=== PATIENT | female | born 1970 | race Caucasian/White ===

== ENCOUNTER → 2023-03-06 | Outpatient (REF) | payer BC ==
[~2023-03-06] MED LIST: ALDACTONE25 MG PO; ATARAX 25MG25 MG; ATORVASTATIN CA20 MG PO; B COMPLEX1 EACH PO; BENADRYL PO; BENADRYL25 M1 PO; BUSPIRONE HCL5 MG PO; CLARITIN PO; CYCLOBENZAPRINE5 MG PO; EMBRIL SQ; FOLIC ACID1 MG PO; LASIX40 MG PO; LORATADINE10 MG PO; LYRICA 75MG75 MG; LYRICA100 MG PO; METHOTREXATE PO; METOPROLOL SUCC25 MG PO; MONTELUKAST SOD10 MG PO; MOTRIN200 MG PO; MOTRIN800 MG PO; NORCO 10-325 T1 EACH PO; OYSTER SHELL C1 EACH PO; PLAVIX75 MG PO; PREDNISONE10 MG PO; PROBIOTIC & AC1 EACH PO; QNASL8.7 GM INH; TOPIRAMATE100 MG PO; VALIUM10 MG PO; VITAMIN C500 MG PO; VITAMIN D1000 UNI1 PO; Z SULFASALAZINE PO; Z.0.DOXEPIN HCL25 MG PO; Z.0.NORCO 10-325 T1 PO; Z.0.OSCAL D500 MG; ZEGERID 40 MG1 EACH PO; ZEGERID OTC 201 EACH PO
== END ==
LOC: US 06:47
PROVIDERS: ATTEND Nurse Practitioner
DX: K75.81 Nonalcoholic steatohepatitis (NASH) (principal)
CPT/HCPCS: 76700

== ENCOUNTER 2025-01-09 17:18 | Emergency (ER) | payer BC ==
[~2025-01-09] VITALS: Ht 167.6 cm; Wt 113.9 kg
[2025-01-09 17:57] VITALS: RESP 19; TEMP 98.2
[2025-01-09] MEDS ORDERED: AMOX TR-K CLV1 EAC2 PO (18:13)
[2025-01-09] MEDS: METHYLPREDNISOLONE ACETATE 80 MG/ML VIAL IM ONE (18:57)
[2025-01-09 18:58] VITALS: PULSE 84
[2025-01-09 19:42] VITALS: BP 125/87; O2SAT 100
== END 2025-01-09 19:41 | disposition home or self-care (01) ==
LOC: ER 18:10
DX: J01.90 Acute sinusitis, unspecified (principal); R51.9 Headache, unspecified; M06.9 Rheumatoid arthritis, unspecified; Z85.3 Personal history of malignant neoplasm of breast; Z86.79 Personal history of other diseases of the circulatory system
CPT/HCPCS: 99283; J1010